=== PATIENT | male | born 1945 ===

== ENCOUNTER 2024-07-31 10:56 | Outpatient (AMB) | payer MEDICARE, SELFPAY ==
--- NOTE | 2024-07-31 10:49 | HO.SPINEOV ---
Intake Visit Reasons: LBP Intake Note: Mr. Baires is here today c/o low back pain. MRI done @ [facility] (brought disc) [employer] Required: No Assessment & Plan Assessment & Plan (1) Spondylolisthesis: Code(s): M43.10 - Spondylolisthesis, site unspecified Category: Medical Plan Dear HARRY Yee, Thank you for referring Garcia to our office today. 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 He comes in today for a 2nd opinion after be evaluated by neurosurgeon Dr. Araiza. She reportedly informed him that she would be willing to do lumbar decompression surgery but she does not feel this would address his pain. He presents today with a chief complaint of low back pain and bilateral leg pain. He states this has been ongoing for about 5 years. He does endorse some numbness and tingling in his bilateral thighs with prolonged ambulation. He denies any inciting incident for the pain. He reports that he has experienced pain from his Parkinson's diagnosis in the past, which feels different from the pain he is experiencing now. He had a difficult time describing the pain in his lower extremities, and is unable to distinguish his leg pain from low back pain, as he states it is all ?interconnected. He reports that when making positional changes such as sitting up from a lying down position, or standing from a seated position he gets severe exacerbations of his pain. He states that when he lays flat in bed on his back he experiences 0 pain. Of note, most recently he began using a cane about 3 months ago to help with ambulation, then about 1 month ago he had to start using a walker to ambulate due to the pain. He has been going to physical therapy every for the past several years, and up until a few weeks ago he was doing regular stationary bicycle exercises and walking about a mile a day. Unfortunately, he is unable to do either of these things now due to the pain. He has obtained injections before both at [facility] and [facility] pain management in the past. He reports that the 1st 2 injections he had a [facility] pain management were successful in treating the pain he describes today. PMH: Osteoporosis, Parkinson's disease, aortic valve regurgitation (bovine valve replacement 2018), Gaucher's disease, major depression, osteoarthritis, cardiomyopathy. BUN :32 on 06/05/24 but GFR >60. Social hx: Patient does not smoke, reports no substance use. Medications: Aspirin 81 mg, carbidopa, levodopa, duloxetine, gabapentin, magnesium, methylphenidate, mirtazapine, morphine 15 mg instant release, sildenafil, melatonin. Allergies: NKDA Physical exam: Garcia has about 4/5 strength of right-sided plantar flexion, and bilateral iliopsoas testing. The rest of his strength in the lower extremities is 5/5. His upper extremity strength is 4/5 diffusely. He has no significant sensational deficits to light touch on examination. His reflexes are 2+ intact. He ambulates very slowly using the available furniture in the office to support himself. He use a walker at baseline. His movements are very rigid. (-) Daniels's, (-) clonus, (-) bilateral straight leg raise. Imaging review: MRI of the lumbar spine completed at [facility] 07/24/2024 (accessible in [place], poor quality imaging) shows what appears to be severe central canal and bilateral foraminal stenosis at L2-3, L3-4. The patient has transitional anatomy, the MRI is already labeled, so for the sake of this assessment we will identify the spondylolisthesis at L4-5. There is what I would call a grade 2 spondylolisthesis at L4-5, most notable on rough localizer view image 1. This is causing severe central canal and bilateral foraminal stenosis at this level. There is significant endplate inflammation at L4-5 noted on STIR sequence. When compared to the MRI completed in 2021, it appears that both the listhesis in the central canal stenosis/bilateral foraminal stenosis are worsening. Impression: Garcia is a pleasant 78-year-old male who comes in today for a 2nd opinion after being evaluated by neurosurgeon Dr. Araiza at [facility]. He reports that he was offered lumbar decompression, but informed that it may not have any effect on his pain. It is possible that lumbar decompression could be beneficial for the patient, however I believe the listhesis at L4-5 is likely the primary pain generator, given that the patient experiences severe exacerbations of pain with positional change, and his listhesis appears worsened from his prior imaging in 2021. If this is in fact the causative agent for his low back pain and leg pain, I would expect the injections that he obtained from [facility] pain management which relieved his pain to be at this level. The treatment for this typically would be correction of the listhesis via lumbar fusion, however the patient has multiple medical comorbidities that make him a poor surgical candidate. Due to the muscular rigidity of Parkinson's, lumbar fusion can be very difficult in these patients. He also has osteoporosis diagnosed in 2017, with no recent DEXA scan. 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 He is very motivated for surgery if he could be offered a surgical solution that will help resolve some of his symptoms. For these reasons and the complexity of this case I would like the patient to follow up with the attending neurosurgeon Dr. Reilly to see if there is anything he is able to offer him. Thank you for allowing us to care for your patient. The total time spent with this visit with this patient was 65 minutes reviewing history, physical exam, MRI imaging review, and implementation of treatment plan or further diagnostic testing Magdy Reilly MD,PhD [facility] Coding Level of Care Code New Pt Level 5 (18379) Diagnoses Spondylolisthesis M43.10
--- OUTSIDE RECORDS SUMMARY | 2024-07-31 12:51 | XMS_ITS | Clinical Summary ---
Author Organization [facility] Address [facility] [place] [address] Care Team Providers Care Veterinary Assistant Name Role Phone Agnieszka Seymour MD Primary Care Provider [phone] Allergies No known active allergies Medications Medication Sig Dispensed Refills Start Date End Date Status sildenafil (REVATIO) 20 mg tablet Take 1 tablet by mouth as needed. 05/03/2013 Active melatonin 3 mg Tablet Take 2 mg by mouth nightly. 2mg at night Active mirtazapine (Remeron) 15 mg TabletIndications:P arkinson's disease Take 2 tablets by mouth nightly. 05/08/2022 Active Additional Information Patient taking differently: 15 mgOral NIGHTLY, Reported on 10/28/2023 methylphenidate (Ritalin) 20 mg tabletIndications:P arkinson's disease Take 1 tablet by mouth daily. Take one tablet in am. Pt is also taking one 10 mg tablet in pm. 30 tablet 08/11/2022 Active Additional Information Patient taking differently:20 mg Oral DAILY,Take one tablet @ 8 am & 1/2 tab 12 noon., Reported on 06/01/2023 nystatin (MYCOSTATIN) 100,000 unit/gram Powder as needed. 05/18/2023 Active senna-docusate (Pericolace) 8.6-50 mg Tablet Take 1 tablet by mouth 2 times daily. 60 tablet 11 10/28/2023 Active carbidopa-levodopa (Sinemet) 10-100 mg tabletIndications:O ther secondary parkinsonism Take 2 tablets by mouth 8 times daily. Take every two hours: 6AM, 8AM, 10AM, Noon, 2PM, 4PM, 6PM, 8PM 480 tablet 1 07/11/2024 Active carbidopa-levodopa (Sinemet CR) 50-200 mg ER tabletIndications:O ther secondary parkinsonism Take 1.5 tablets by mouth nightly. 45 tablet 1 07/11/[address] (Cymbalta) [address] capsule Take 1 capsule by mouth daily for 90 days. 90 tablet 3 07/25/2024 10/23/2024 Active Carbidopa-Levodopa- Entacapone (Stalevo 200) 50-200-200 mg tabletIndications:P arkinson's disease,Idiopathic Parkinson's disease Take 1 tablet by mouth 5 times daily. 450 tablet 3 07/27/2024 Active Active Problems Problem Noted Date Diagnosed Date Lumbar spinal stenosis 06/02/2024 Assessment & Plan (06/02/2024 7:15 PM EST): The problem with Manishas gait appears to be multifactorial: Overall there seems to be an asymmetry to the examination showing some decreased reflexes, increased muscle atrophy, and decreased muscle strength in the right lower extremity, they could be all related to his severe spinal stenosis. I do not have any spinal imaging, but I would like to start with that, and I would like to consider whether referral to a spinal neurosurgeon would be of any use, and to consider any range of invasive to minimally invasive surgeries. Obviously he is not a candidate for invasive surgery, but if there is a minimal procedure that can be done in the right appropriate setting, we should consider that. Sacroiliac joint dysfunction of both sides 06/02 Gait difficulty- multifactorial 06/02/2024 Assessment & Plan (06/02/2024 7:19 PM EST): Parkinson's with axial features Right lumbosacral stenosis Peripheral neuropathy Idiopathic peripheral neuropathy 06/02/2024 Assessment & Plan (06/02/2024 7:18 PM EST): He does have a distal peripheral neuropathy to vibratory sensation suggesting a large fiber neuropathy that is length-dependent, and of those possibilities, B12 deficiency is the most concerning, but there may be others such as aminoglycoside autoantibodies as well as toxins such as heavy metals which we can reevaluate. To further get an understanding of this, I believe a nerve conduction test would be helpful so I will order that. End of battery life of deep brain stimulator S/P deep brain stimulator pl acement - bilateral GPi - Medtronic Percept 08/16/2020 Assessment & Plan (06/02/2024 7:19 PM EST): I made changes to group a and group B in the deep brain stimulator to the recommended settings according to the [employer] sales service representative. We we will allow him to make some changes to the stimulator settings we will start with group A, so that he will have some information when he sees the deep brain stimulator neurologist in [place] in 10 days. GBA associated Parkinson's disease 06/11/2020 Overview (08/31/2023): Symptoms RUE rest tremor Decreased armswing on R when swimming Slower race time scores Data and imaging Samantha: MRI: CT: PET: Gaucher Disease status: Medications current Levodopa Bilateral GPi DBS 2020 Tried leads 0 and 1 on the left which affected speech and a sense of dizziness Brainsense survey detect peak at leads 0-1 and 1-2 Leaving it with bipolar or monopolar. Assessment & Plan (06/02/2024 7:13 PM EST): Continue levodopa DBS changes were made. Groups A and B allow monopolar stimulation or dual monopolar stimulation respectively Assessment & Plan (03/14/2024 7:12 AM EST): Garcia Baires is a 78-year-old with GBA homozygous and Parkinson's disease. He is status post GPI DBS and has not had a full programming session, I believe he was started on the default settings which seem to be working. We have not explored all of the potential developmental options. For that reason, I recommended that he undergo a full programming session. He would like 1 closer to home and I we will make a referral to Dr. Danielle Richard. Assessment & Plan (08/31/2023 10:08 AM EDT): We revised group C with a higher freqeuncy Group A is what you came in with Group B is monopolar also with higher freqeuncy 180 Hz) Feel free to experiment with Group B or D (monopolar) and if need to fall back to Group A, the bipolar setting that seems to work the best. We repeated the brainsense survey and it seems that the middle two peaks last picker the most signal. Assessment & Plan (11/27/2022 8:18 AM EDT): The patient complains about a gradual decline which is likely multifactorial. I encouraged him to discuss with Dr. Domínguez any clinical trial that might be designed to look at drugs that may be helpful for the GBA gene mutations and she may be intimately knowledgeable of the clinical trials that are involving this population of parkinsonian patients. He was encouraged to continue exercise, and we discussed caregiver health, and I think that it is important for giving some space for Anupama to take care of herself. We have this discussion with stem cells. Assessment & Plan (05/08/2022 6:07 PM EST): We talked about the clinical trial for the GBA medication that might be applicable especially for your situation. I will provide him with more information once that is available. Adjusting the deep brain stimulator on the left GPI resulted in improved rigidity on the right, and I left that at 4.0. He had the ability to make any further adjustments if he finds that this adjustment caused any side effects later on today. I agree with increase of dosing of the Stalevo which is the carbidopa levodopa entacapone, up to 4 times daily. I have made that change in the record. I will make a referral to Dr. Benedict Rosado to address the symptoms of apathy and anhedonia. Advise that he consider physical therapy, consider natasha chi for better balance. Assessment & Plan (10/21/2021 7:03 AM EDT): Garcia continues to have suffered from slow declines and performance and physical activity. Fatigue is a major issue. Unfortunately, I am not sure this represents a solution pharmacologically. From a motor standpoint, his symptoms are fairly well controlled in terms of bradykinesia and rigidity as well as his gait and balance. He does have some mild hip weakness on gait examination, but otherwise, I am afraid that he is optimized in terms of medications. Deep brain stimulation as well. Continue to encourage him to exercise, and to maintain physical activity and to avoid deconditioning. Assessment & Plan (04/29/2021 6:02 AM EST): Garcia Tai is a 75-year-old highly active male with GBA mutation related Parkinson's. He is status post DBS, but now with complaints that are suggestive of polymyalgia rheumatica. Would like to check a sed rate and evaluate for any causes of myalgias. 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 10/21/2010 10/21/2010 Heart block AV first degree 10/07/2010 Overview (01/17/2012): At least since 1985 with no issues Anemia 10/07/2010 Overview (10/07/2010): Mild chronic anemia since his teens, worked up but no cause found Resolved Problems Problem Noted Date Diagnosed Date Resolved Date Idiopathic Parkinson's disease 06/04/2015 04/29/2021 Assessment & Plan (09/06/2020 7:08 PM EDT): At this point, it appears that the bipolar lead settings were optimal in reducing some of the side effects, and that leads slightly more dorsal appear to be better, at reducing the side effects of mood alteration. At this point, I would not make any changes to the deep brain stimulator at this time. However, I note that he is now age 75 and is still on a fairly strong dose of ropinirole. I wonder whether this is contributing to his alteration in I would like to taper him off of the ropinirole switching to immediate release ropinirole at 2 mg strength 4 times a day, reducing to 3 times a day, then twice a day and then off once a day. He knows to adjust the deep brain stimulator settings as needed according to the development of any slowing down. I will see him in follow-up or sooner if the need arises. This was a 40-minute visit, during which greater than 25minutes were spent in counseling discussion regarding the above assessment and plan. Assessment & Plan (02/29/2020 12:55 PM EST): You were seen for OFF-ON testing and your UPDRS Motor score went down from 30 to 18. We'll discuss your case with the DBS discussion board. 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 He has progressed and much of our discussion centered on timing of DBS. Now is the right time to do so. One thing we did not discuss is the report that DBS can affect the ability to swim. I'll be sure to send him the article. Assessment & Plan (07/03/2019 11:16 PM EDT): Garcia Baires is doing well on current medications. At this point, I am reluctant to increase the medications Assessment & Plan (02/20/2019 5:19 PM EST): The patient is a 73-year-old male with a history of tremor and rigidity on the left more than the right. Examination reveals very mild parkinsonian signs. Recommend that we decrease his rasagiline. I have changed his carbidopa levodopa. We discussed manifestations of depression including irritability, short temperedness, anger, especially when he continues to expression of depression in time, he is not interested in starting an antidepressant. I suggested starting him on sertraline. Other possibilities include nortriptyline. This has a faster action of onset, fewer side effects. He will follow-up with us on an annual basis, alternating between us and the [facility] (Dr. Domínguez) Assessment & Plan (05/23/2017 5:46 PM EST): Parkinson's disease associated with Gaucher's disease. There has been some slight progression of motor symptoms. I recommend that we do a slight dose increase of the Requip XL. Advancing from 16 mg to 20 mg per day. Advised that he continue follow-up with Dr. Arnold and Dr. Domínguez. Assessment & Plan (12/02/2015 12:58 PM EDT): Doing well on current dopaminergic and MAO-B inhibitor. Will continue to encourage exercise, range of motion, and regular fitness training. Unfortunately, medication directed against Gaucher disease are not able to address the underlying pathophysiology (presumed). We reviewed current understanding of lysosomal storage and its role in alpha synuclein degradation. Nolitinib may be a promising agent that enhances activity. Additional questions were answered. 25 min visit with > 15 min in discussion and therapeutic counseling. Assessment & Plan (06/04/2015 3:09 PM EST): Mr. Baires has a very interesting family history, one in which Alyssa Arnold has described as having a role in Parkinson's disease given the association in families with GBA 1 mutations. I provided a review by Dr. Arnold. I told him that I will contact her and will send him information as it becomes available. I am not sure whether the genetic status qualifies him for idiopathic Parkinson's disease or not, which will impact on his ability to participate in clinical trials. I described the fact that new patients who are newly diagnosed without being on medications are extremely difficult to recruit for clinical trials, are essential in our studies of disease modifying agents. With that in mind, the following plan was formulated: 1. Research GBA1 and link to PD. 2. Ok to start rasgaline 0.5 mg daily, and f/u with to decide if 1 mg is needed. 3. I will contact [employer] PD3 investigators. 4. You will get a Smell Identification test in the mail which he will send back to us. 5. Continue exercise as he is doing. Knee pain 09/26/2010 11/13/2010 Encounters Date Type Department Care Team Description 07/27/2024 Orders Only Neurology at [address] [phone] Fernando Blancas MD Parkinson's disease; Idiopathic Parkinson's disease 07/25/2024 Refill [facility]iatry [place] [address] Benedict Rosado MD 07/21/2024 Telephone Psychiatry [place] [address] Lelia Sosa 07/21/2024 Notes Only Psychiatry [place] [address] Benedict Rosado MD 07/11/2024 Telephone Neurology at [address] [address] Fernando Blancas MD 07/08/2024 Travel 07/03/2024 Telephone Neurology at [address] [address] Fernando Blancas MD Other (Symptom: freezing a lot, weakness, balance issues, falls /) 06/27/2024 Orders Only Neurology at [address] [address] Fernando Blancas MD Other secondary parkinsonism 06/21/2024 Telephone Neurology at [address] [address] Fernando Blancas MD Other 06/02/2024 8:30 AM EST Office Visit Neurology at [address] [address] Fernando Blancas MD GBA associated Parkinson's disease; Spinal stenosis of lumbar region without neurogenic claudication; Gait difficulty- multifactorial; Idiopathic peripheral neuropathy; S/P deep brain stimulator placement - bilateral GPi - [employer]tronic Percept 06/02/2024 Travel 05/12/2024 10:00 AM EST TH Visit (TeleHealth) Psychiatry [place] [address] Benedict Rosado MD Parkinson's disease, unspecified whether dyskinesia present, unspecified whether manifestations fluctuate; Anxiety; Apathy from Last 3 Months Family History Relation Status Comments Brother Gaucher disease Mother Parkinson's at a ge 65, stroke at age 81 Social History Tobacco Use Types Packs/Day Years Used Date Smoking Tobacco: Former Cigarettes Q uit: 1969 Smokeless Tobacco: Never Tobacco Cessation:Counseling Given: Not Answered Alcohol Use Standard Drinks/Week Comments Not Currently 1 (1 standard drink = 0.6 oz pur e alcohol) 1/ week Overall Financial Resource Strain (CARDIA) Answe r Date Recorded How hard is it for you to pa y for the very basics like food, housing, medical care, and heating? Not hard at all 08/03/2022 Exercise Vital Sign Answer Date Recorde d On average, how many days pe r week do you engage in moderate to strenuous exercise (like a brisk walk)? 7 days Minutes of Exercise per Session Not on file 08/03/2022 Hunger Vital Sign Answer Date Recorded Within the past 12 months, y ou worried that your food would run out before you got the money to buy more. Never true 08/04/19 23 Within the past 12 months, t he food you bought just didn't last and you didn't have money to get more. Never true 08/03/2022 PRAPARE - Transportation Answer Date Re corded In the past 12 months, has l ack of transportation kept you from medical appointments or from getting medications? No 07/18 In the past 12 months, has l ack of transportation kept you from meetings, work, or from getting things needed for daily living? No 08/03/2022 Housing Stability Vital Sign Answer Samantha e Recorded In the last 12 months, was t here a time when you were not able to pay the mortgage or rent on time? No 08/03/2022 In the last 12 months, how many places have you lived? 1 08/03/2022 In the last 12 months, was t here a time when you did not have a steady place to sleep or slept in a custodial (including now)? No 08/03/2022 DH IPV Inpatient Questions Answer Date Recorded Prevent Contact with Others Not on file 03/19 Feels Threatened by Someone Not on file 03/19 Feels Unsafe at Home Not on file 03/29/2024 Physical Signs of Abuse Present no 03/29/2024 Sex and Gender Information Value Date Recorded Sex Assigned at Not on file Gender Identity Not on file Sexual Orientation Not on file Last Filed Vital Signs Vital Sign Reading Time Taken Comments Blood Pressure 118/67 06/02/2024 8:21 AM EST Pulse 55 06/02/2024 8:21 AM EST Temperature 36.1 ??C (97 ??F) 03/29/2024 8:38 AM EST Respiratory Rate 16 03/29/2024 9:00 AM EST Oxygen Saturation 97% 03/29/2024 9:00 AM EST Inhaled Oxygen Concentration - - Weight 65.8 kg (145 lb) 03/29/2024 6:43 AM EST Height 175.3 cm (5' 9 ) 03/29/2024 6:43 AM EST Body Mass Index 21.41 03/29/2024 6:43 AM EST Plan of Treatment Upcoming Encounters Date Type Department Care Team (Late st Contact Info) Description 09/08/2024 3:00 PM EDT Office Visit Neurology at [address] [address] Fernando Blancas MD [facility] [place] [address] 09/22/2024 10:30 AM EDT TH Visit (TeleHealth) Psychiatry [place] [address] Benedict Rosado MD [facility] [place] [address] Health Maintenance Due Date Last Done Comments Hepatitis C Screening 08/23/1963 Pneumoccocal Vaccine: 50+ (1 of 2 - PCV) 1964 Tetanus/Diphtheria/Pertussis Vaccines (1 - Tdap) 08/22 Zoster vaccine (1 of 2) 08/23/1995 RSV Vaccine (1 - 1-dose 75+ series) 2020 Covid-19 Vaccine (1 - season) 2023 Influenza (Flu) vaccine (1 o f 1 - Influenza standard series) 12/19/2023 Medical Devices Implanted Type Area Manager Channel Device Identifier Shelf Expiration Date Model / Serial / Lot Cement,Bne,Cmw 2,Hlf Dose,20gm ([id number]) - [id number] Implanted:Qty: 1 on 10/21/2010 at [facility] IMPLANTS DO NOT USE Depuy Metal Fabricating Inspector - 3527 [id number] / / [id number] Component,Patlr,O vl Std,38mm ([id number]) (Autoreq) - [id number] Implanted:Qty: 1 on 10/21/2010 at [facility] IMPLANTS DO NOT USE [employer] Fabricating Inspector - 3527 07/23/2015 [id number] / / [id number] Component,Tibl,Pc ot,Keeled,5 ([id number]) (Autoreq) - [id number] Implanted:Qty: 1 on 10/21/2010 at [facility] IMPLANTS DO NOT USE [employer] Fabricating Inspector - 3527 06/22/2015 [id number] 150 / / [id number] Insert,Tibl,Rp,Cr vd,5,10mm (7093054) (Autoreq) - [id number] Implanted:Qty: 1 on 10/21/2010 at [facility] IMPLANTS DO NOT USE Dep[employer] Metal Fabricating Inspector - 3527 05/24/2015 96-2051 / / [id number] Component,Fmrl,Rt ,Cr,5,12k59oz ([id number]) (Autoreq) - [id number] Implanted:Qty: 1 on 10/21/2010 at [facility] IMPLANTS DO NOT USE [employer] Fabricating Inspector - 3527 08/21/2020 [id number] / / [id number] Cover Tatiana Hole Cranial Low Profile Contoured With Tab ([id number]) - [id number] Implanted:Qty: 2 on 07/08/2020 by Kt Matthews MD at [facility] IMPLANTS Cranial [employer] [id number] / / [id number] A Kit Lead Neurostimulator 0.3ynm57cd Quadripolar Activa Dbs ([id number]) - [id number] Implanted:Qty: 2 on 07/08/2020 by Kt Matthews MD at [facility] IMPLANTS Cranial [employer] - [employer] 05/18/2024 [id number] / / [id number] Battery Generator Neurostimulator Percept Pc ([id number]) ([employer]oreq) - [id number] Implanted:Qty: 1 on 07/08/2020 by Kt Matthews MD at [facility] IMPLANTS Right: Chest [employer] 05/16/2022 [id number] / / [id number] H Kit Extension Neurostimulator 60cm Brain Mri Quadrapolar ([id number]) - [id number] Implanted:Qty: 1 on 07/08/2020 by Kt Matthews MD at [facility] IMPLANTS Left: Cranial [employer] 06/12/2023 [id number] / [id number] / Kit Extension Neurostimulator 60cm Brain Mri Quadrapolar ([id number]) - [id number] Implanted:Qty: 1 on 07/08/2020 by Kt Matthews MD at [facility] IMPLANTS Right: Cranial [employer] 05/29/2023 [id number] / [id number] / Battery Generator Neurostimulator Percept Pc Brainsense ([id number]) (Autoreq) - [id number] Implanted:Qty: 1 on 08/26/2022 by Nette Ramirez MD at [facility] IMPLANTS Chest Wall [employer] - [employer] 01/15/2024 [id number] / [id number] / Percept Rc Implanted:Qty: 1 on 03/29/2024 by Nette Ramirez MD at [facility] Right: Chest [id number] 01/30/2026 [id number] / [id number] / Advance Directives Documents on File Type Date Recorded 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 Yes, Order is based on Patients wishes. Care Teams Veterinary Assistant Relationship Specialty Start Date End Date Agnieszka Seymour MD [address] [address] PCP - General Family Medicine 07/01/20
--- OUTSIDE RECORDS SUMMARY | 2024-07-31 12:51 | XMS_ITS | Clinical Summary ---
Author Organization [facility] Address [address] [place] [address] Care Team Providers Care Painting Technician Name Role Phone Agnieszka Seymour Mt Primary Care Provider [phone] Allergies No known active allergies Medications aspirin (ASPIR-81 ORAL) 06/05/2020 Act jordon carbidopa-levodo pa-entacapone (STALEVO) 50-200-200 mg per tablet TAKE 1 TABLET 5 TIMES DAILY 03/23/2024 Active carbidopa-levodo pa ER/CR (SINEMET ER/CR) 25-100 mg tablet Take 1 tablet by mouth 2 times a day. As needed Active DULoxetine DR (CYMBALTA) 30 mg capsule Take 30 mg by mouth once a day. Active melatonin 3 mg tablet Take 2 mg by mouth daily. Active Ritalin 20 mg tablet 06/05/2022 Active mirtazapine (REMERON) 15 mg tablet Take 15 mg by mouth at bed time. 04/21/2024 Active Active Problems Problem Noted Date Diagnosed Date Parkinson's disease with fluctuating manifestati ons 06/14/2024 S/P deep brain stimulator placement 06/14/2024 Encounters Date Type Department Care Team Description 07/06/2024 Telephone [facility] [address] [place] [address] Telephone Intake, Staff PAC Tatyana Zimmerman Appmaru Request - Established 06/12/2024 9:00 AM EST Office Visit [facility] [address] [place] [address] [phone] Erasmo, Tatyana M., REPAIRER SHOE STICKS Parkinson's disease with fluctuating manifestations, unspecified whether dyskinesia present (Primary Dx); S/P deep brain stimulator placement from Last 3 Months Social History Tobacco Use Types Packs/Day Years Used Date Smoking Tobacco: Never Smokeless Tobacco: Never Tobacco Cessation:Counseling Given: Not Answered Alcohol Use Standard Drinks/Week Comments Never 0 (1 standard drink = 0.6 oz pur e alcohol) Sex and Gender Information Value Date Recorded Sex Assigned at Male 06/05/2024 1:03 PM EST Legal Sex Male 12:53 PM EST Gender Identity Male 06/05/2024 1:03 PM EST Sexual Orientation Choose not to disclose 2024 1:03 PM EST Last Filed Vital Signs Vital Sign Reading Time Taken Comments Blood Pressure 92/55 06/12/2024 9:11 AM EST Pulse 68 06/12/2024 9:11 AM EST Temperature 36.5 ??C (97.7 ??F) 06/12/2024 9:02 AM ES T Respiratory Rate 16 06/12/2024 9:02 AM EST Oxygen Saturation 95% 06/12/2024 9:02 AM EST Inhaled Oxygen Concentration - - Weight 63.5 kg (140 lb) 06/12/2024 9:02 AM EST Height 175.3 cm (5' 9 ) 06/12/2024 9:02 AM EST Body Mass Index 20.67 06/12/2024 9:02 AM EST Plan of Treatment Upcoming Encounters Date Type Department Care Team (Late st Contact Info) Description 10/13/2024 9:00 AM EDT Office Visit [facility] [address] [place] [address] Tatyana Zimmerman NP [address] [place] [address] Health Maintenance Due Date Last Done Comments Hepatitis C Screening 1945 Zoster Vaccines (3 of 3) 06/16/2019 04/21/2019, 04/19 RSV Vaccine (60+ years old and patients) (1 - 1-dose 75+ series) 2020 Alcohol/Substance Use Screening 04/19/2024 Depression Screening and Follow-Up 04/19/2024 Health Care Proxy Review 04/19/2024 Social Drivers of Health Annual Screening 04/19/2024 COVID-19 Vaccine ( season) 2024 12/30/2023, 01/09/2023, 08/15/2022, Additional history exists DTaP,Tdap,and Td Vaccines (3 - Td or Tdap) 02/21/2032 02/20/2022, 07/15/2011, 06/06/2001 Pneumococcal Vaccine: 50+ Years Completed 01/30/2019, 12/29/2012 Influenza Vaccine Completed 02/04/2024, , 01/09/2023, Additional history exists Hepatitis B Vaccines Aged Out No long er eligible based on patient's age to complete [place] [id number] BCBS MCR REPLACE PPO Care Teams Painting Technician Relationship Specialty Start Date End Date Agnieszka Seymour [address] [place] [phone] PCP - General Family Medicine 03/06/24
--- OUTSIDE RECORDS SUMMARY | 2024-07-31 12:51 | XMS_ITS | Encounter Summary ---
Author Organization [facility] [place] [address] Care Team Providers Care Doughnut Maker Name Role Phone Agnieszka Seymour MD Primary Care Provider [phone] Encounter Details Date Type Department Care Team (Late st Contact Info) Description 07/27/2024 Orders Only Neurology at [facility] [address] [place] [address] Fernando Blancas MD [facility] [place] [address] Parkinson's disease; Idiopathic Parkinson's disease Social History Tobacco Use Types Packs/Day Years Used Date Smoking Tobacco: Former Cigarettes Q uit: 1969 Smokeless Tobacco: Never Alcohol Use Standard Drinks/Week Comments Not Currently [...] No 08/03/2022 Housing Stability Vital Sign Answer Zach e Recorded In the last 12 months, [...] place to sleep or slept in a snf (including now)? No 08/03/2022 IPV Inpatient Questions Answer Date Recorded Prevent Contact with Others Not on file 03/19 Feels Threatened by Someone Not on file 03/19 Feels Unsafe at Home Not on file 03/29/2024 Physical Signs of Abuse Present no 03/29/2024 Sex and Gender Information Value Date Recorded Sex Assigned at Not on file Gender Identity Not on file Sexual Orientation Not on file documented as of this encounter Plan of Treatment Upcoming Encounters Date Type Department Care Team (Late st Contact Info) Description 09/08/2024 3:00 PM EDT Office Visit Neurology at [address] [phone] Fernando Blancas MD [facility] [place] [address] 09/22/2024 10:30 AM EDT TH Visit (TeleHealth) Psychiatry [place] [address] Benedict Rosado MD [facility] [place] [address] documented as of this encounter Visit Diagnoses Diagnosis Idiopathic Parkinson's disease Paralysis agitans documented in this encounter Care Teams Doughnut Maker Relationship Specialty Start Date End [place] [address] PCP - General Family Medicine 07/01/20 documented as of this encounter
--- OUTSIDE RECORDS SUMMARY | 2024-07-31 12:51 | XMS_ITS | Encounter Summary ---
Author Organization [facility] [place] [address] Care Team Providers Care Manager Target Name Role Phone Agnieszka Seymour MD Primary Care Provider [phone] Encounter Details Date Type Department Care Team (Late st Contact Info) Description 06/27/2024 Orders Only Neurology at [facility] [address] [place] [phone] Fernando Blancas MD [facility] [place] [address] Other secondary parkinsonism Social History Tobacco Use Types Packs/Day Years [...] place to sleep or slept in a mcfp (including now)? No 08/03/2022 IPV Inpatient Questions [...] 3:00 PM EDT Office Visit Neurology at [address] [phone] Fernando Blancas MD [facility] [place] [address] 09/22/2024 10:30 AM EDT TH Visit (TeleHealth) Psychiatry [place] [address] Benedict Rosado MD [facility] [place] [address] documented as of this encounter Visit Diagnoses Diagnosis Other secondary parkinsonism documented in this encounter Care Teams Manager Target Relationship Specialty Start Date End Date Agnieszka Seymour MD [address] [address] PCP - General Family Medicine 07/01/20 documented as of this encounter
--- OUTSIDE RECORDS SUMMARY | 2024-07-31 12:51 | XMS_ITS | Encounter Summary ---
Author Organization [facility] [place] [address] Care Team Providers Care Gear Generator Set Up Operator Name Role Phone Agnieszka Seymour MD Primary Care Provider [phone] Reason for Visit * Reason Onset Date Comments Other 07/03/2024 Symptom: freezin g a lot, weakness, balance issues, falls Encounter Details Date Type Department Care Team ([facility] st Contact Info) Description 07/03/2024 Telephone Neurology at [address] [phone] Fernando Blancas MD [facility] [place] [address] Other (Symptom: freezing a lot, weakness, balance issues, falls /) Social History Tobacco Use Types Packs/Day Years [...] place to sleep or slept in a jail (including now)? No 08/03/2022 IPV Inpatient Questions [...] on file documented as of this encounter Miscellaneous Notes * Telephone Encounter - Chica Allison RN - 07/07/2024 9:50 AM EDTSummary: Significant increase in symptom intensity On request of the administrative youth support worker, I was asked to come speak to the patient who was sitting in front of the exit confidential secretary's desk. Patient was brought into Room 5, so that I could speak with him in private. Patient stated that when they spoke to a planner/scheduler yesterday they were told that they could be seen at 9:30AM. However, on review of the patient's EMR, patient is schedule to see Dr. Blancas on September 01, 2024. Patient states that he cannot wait until August [address] Blancas or any Neurology provider because his condition has declined dramatically since being seen in clinic on June 02, 2024. Patient reports most of the symptoms that have decline are mostly physical and has to do with his mobility: Unable get out of bed independently due to severe freezing and pain from spinal stenosis rated a 9/10. If he can get to a standing position then the pain decreases to a 4/10 Once in the bed for the night he cannot rollover in bed. Patient has had to alter his process on how he gets up in the morning to take his pills Probable injury to left bicep tendon/muscle due to recent falls and the amount of assistance needed to get patient sitting on the side of the bed in the morning. has to pull patient's left arm to get patient to sitting position 8-10 falls since last office visit causing a great deal of bruising and 2 broken knuckles of the Right hand. Patient is so concerned about how much he is relying on his for mobility and he is concerned about her physical health. Patient will try crushing his first dose of Carbidopa/Levodopa 25/100mg with applesauce while lyingin bed in an attempt to alleviate some of the freezing and hopefully this will help patient to get from a lying to sitting position in bed in the AM. Patient has scheduled a TeleHealth appointment with Dr. Blancas @ 4:30pm as it is too far to drive to [facility]. Patient and his will be in [place] for the TeleHealth. Store Group Manager to route note to provider for review prior to appointment on 07/11/24 Chica MORALES * Telephone Encounter - Jaime Vega - 07/07/2024 9:24 AM EDT Patient came in today thinking he had an appointment today. He stated I told him there were severalappointments today and I called him yesterday. He said he needed to see someone arlene as he is declining. I recommended the ed then went and got a nurse to speak with him. * Telephone Encounter - Queen Noe Taveras RN - 07/06/2024 8:34 AM EDT Returned call to patient and spoke with patient and patient's /DPR Anupama who states the patient has been experiencing an increase in symptoms such as freezing, weakness, balance issues, falls and pain. States she thinks patient needs a sooner appt and all medications need to be evaluated. Patient and spouse explain that the freezing became more obvious after last visit with Dr. Blancas. States the freezing occurs many times during the day and it seems most likely to occur when a dose of medication is coming due, however it's really hard to say . Patient also explains that his ongoing pain and balance issues seem to be his most immediate challenges. States he has spinal stenosis and takes gabapentin for pain which his PCP manages. Advised to contact PCP to inform that pain is not under control. Patient stated he would reach out to PCP. Patient also sates due to weakness in his legs and balance issues, he has occasional falls. Patientuses a walker and stair lift. Patient states he tries to get out and walk everyday, however the walks are very short. He has had to stop going for peddling for PD and his exercise class at the due to the weakness. Patient also states he goes to PT 1x a week. Patient states some days are better, for instance yesterday was a good day but states today is a lousy day and he can barely move. States it takes him 30-45 minutes to get up from bed and make his way downstairs with the stair lift. Patient states this morning he has already taken Stalevo and C/LIR and still can barely move. Patient states he takes Stalevo when he gets up in the morning, then at 9AM, 1PM, 4PM and 9PM. Patient also states he take C/L 25-100, usually 1 tab if he's between doses and wants to do something like go for a walk. States on a typical day he takes 2 tabs of C/L 25-100 at intervals that seem appropriate for that day. Patient states he also takes C/L CR 50-200 mg when he goes to bed around 9:30 PM or 10PM. Advised patient to call PCP regarding pain and to use walker at all times to prevent a fall. Informed that I would forward message to Dr. Blancas for his review and recommendations. Patient and spouse verbalized understanding. * Telephone Encounter - Nestor Bob - 07/06/2024 8:16 AM EDT Anupama Baires, patient's /DPR, stated she is very concerned not to have heard back from a nurse as the patient's symptoms are increasing and acute and he is desperate for relief. Anupama stated she believes he may need a new medication regiment and can be reached at [phone] to discuss. * Telephone Encounter - Marlin Valencia RN - 07/03/2024 2:05 PM EDT Copied from [facility] #[id number]. Topic: Specialty Dept CRMs - Triage >> Jul 03, 2024 1:28 PM Nestor Randhawa wrote: Triage Message Specialist: Fernando Blancas MD Relationship (if other than patient-full name): Anupama Baires, patient's /DPR Symptom: freezing a lot, weakness, balance issues, falls Has patient experienced symptom before yes If patient has experienced symptom before, when was the last time this occurred ongoing Is patient currently having symptom yes When did symptom begin ongoing Additional Comments: Anupama stated the patient has been experiencing an increase in symptoms, he isfreezing a lot, weakness, balance issues, falls and pain. Anupama stated she does not believe the carbidopa-levodopa is not working and she feels the patient needs to be seen before August. documented in this encounter Plan of Treatment Upcoming Encounters Date Type Department Care Team (Late st Contact Info) Description 09/08/2024 3:00 PM EDT Office Visit Neurology at [address] [phone] Fernando Blancas MD [facility] [place] [address] 09/22/2024 10:30 AM EDT TH Visit (TeleHealth) Psychiatry [place] [address] Benedict Rosado MD [facility] DR PSYCHI[place] [address] documented as of this encounter Visit Diagnoses Not on filedocumented in this encounter Care Teams Gear Generator Set Up Operator Relationship Specialty Start Date End Date Agnieszka Seymour MD [address] [address] PCP - General Family Medicine 07/01/20 documented as of this encounter
--- OUTSIDE RECORDS SUMMARY | 2024-07-31 12:51 | XMS_ITS | Encounter Summary ---
Author Organization [facility] Address [address] [place] [address] Care Team Providers Care Gate Agent Name Role Phone Agnieszka Seymour Mt Primary Care Provider [phone] Reason for Visit * Reason Onset Date Comments PAC Tatyana Zimmerman Appt Request - Established 2024 Encounter Details Date Type Department Care Team (Late st Contact Info) Description 07/06/2024 Telephone [facility] [address] [place] [address] Telephone Intake, Staff PAC Tatyana Zimmerman Appt Request - Established Social History Tobacco Use Types Packs/Day Years Used Date Smoking Tobacco: Never Smokeless Tobacco: Never Alcohol Use Standard Drinks/Week Comments Never 0 (1 standard drink = 0.6 oz pur e alcohol) Sex and Gender Information Value Date Recorded Sex Assigned at Male 06/05/2024 1:03 PM EST Legal Sex Male 12:53 PM EST Gender Identity Male 06/05/2024 1:03 PM EST Sexual Orientation Choose not to disclose 2024 1:03 PM EST documented as of this encounter Miscellaneous Notes * Telephone Encounter - RUFUS Bailey - 07/07/2024 9:31 AM EDT PAC working bump list Pt need to r/s DBS procedure appt Please advise * Telephone Encounter - Polina Cartwright - 07/06/2024 3:11 PM EDT Pt is calling to resched his appt with Tatyana Zimmerman for DBS that was in September. The DT would not allow me to resched. Please reach out resched. documented in this encounter Plan of Treatment Upcoming Encounters Date Type Department Care Team (Late st Contact Info) Description 10/13/2024 9:00 AM EDT Office Visit [facility] [address] [place], [place] [phone] Tatyana Zimmerman, WELDING MACHINE ASSEMBLER [address] [place] [address] documented as of this encounter Visit Diagnoses Not on filedocumented in this encounter Care Teams Gate Agent Relationship Specialty Start Date End Date Agnieszka Seymour [address] [place] [phone] PCP - General Family Medicine 03/06/24 documented as of this encounter
--- OUTSIDE RECORDS SUMMARY | 2024-07-31 12:51 | XMS_ITS ---
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
--- OUTSIDE RECORDS SUMMARY | 2024-07-31 12:51 | XMS_ITS | Referral Summary ---
Author Organization [facility] Address [address] [place] [address] Care Team Providers Care Dining Server Name Role Phone Dawn Agnieszka Amor Primary Care Provider [phone] Encounters Date Type Department Care Team Description 07/06/2024 Telephone [facility] [address] [place] [address] Telephone Intake, Staff PAC Tatyana Zimmerman Appt Request - Established 06/12/2024 9:00 AM EST Office Visit [facility] [address] [place] [address] Tatyana Zimmerman NP Parkinson's disease with fluctuating manifestations, unspecified whether dyskinesia present (Primary Dx); S/P deep brain stimulator placement from Last 3 Months Allergies No known active allergies Medications aspirin [...] 06/14/2024 S/P deep brain stimulator placement 06/14/2024 Social History Tobacco Use Types Packs/Day Years [...] Description 10/13/2024 9:00 AM EDT Office Visit [facility] [address] [place] [address] Tatyana Zimmerman NP [address] [place] [address] Insurance BCBS MCR REPLACE PPO Care Teams Dining Server Relationship Specialty Start Date End Date Agnieszka Seymour [address] [place] [phone] PCP - General Family Medicine 03/06/24
== END 2024-07-31 11:43 | disposition home or self-care (01) ==
LOC: HO.HNS 10:56
PROVIDERS: PCP Family Medicine; Referring Provider Nurse Practitioner Adult Health; Visit Provider Physician Assistant
DX: M43.10 Spondylolisthesis, site unspecified (principal)
CPT/HCPCS: 99205

== ENCOUNTER → 2024-07-31 10:56 | Outpatient (BNVA) | payer MEDICARE, SELFPAY | PROVIDERS: PCP Family Medicine; Referring Provider Nurse Practitioner Adult Health; Visit Provider Physician Assistant | DX: M43.10 Spondylolisthesis, site unspecified (principal) | CPT/HCPCS: 99202 ==

== ENCOUNTER 2024-08-04 10:18 | Outpatient (AMB) | payer MEDICARE, SELFPAY ==
--- NOTE | 2024-08-04 10:22 | A.SPINEOV_ITS ---
Intake Visit Reasons: Follow up from 07/31/24 Intake Note: Mr. Baires is here today to F/u and meet Dr. Reilly. Associate Business Analyst Required: No Allergies No Known Allergies Allergy (Verified 08/04/24 10:23) Assessment & Plan Assessment & Plan (1) Spondylolisthesis: Code(s): M43.10 - Spondylolisthesis, site unspecified Category: Medical Qualifiers: Spinal region: lumbosacral Qualified Code(s): M43.17 - S pondylolisthesis, lumbosacral region Plan: Dear colleague, On 08/04/2024 I saw for follow-up Garcia Baires. He is a 78-year-old male who suffering from back pain and bilateral leg pain with walking and standing. Changing positions produces back pain. He was diagnosed with a grade 2 lumbar spondylolisthesis and associated severe central stenosis and bilateral L4 foraminal stenosis. His medical history is positive for Parkinson's disease and osteoporosis for which she takes vitamin-D and calcium. He was seen by my PA who referred him to me for further evaluation and to discuss possible surgical options. I reviewed the MRI of the lumbar spine in detail with the patient in his that shows a grade 2 spondylolisthesis and severe degenerative disc disease and associated spinal stenosis. A standing lumbar x-ray with flexion-extension obtained today shows a lumbar degenerative scoliosis L2-3 L3-4 in addition to the grade 2 L4-5 spondylolisthesis. A simple decompression is not a good surgical option in his patient due to the grade 2 spondylolisthesis. Normally, correction of the spondylolisthesis with a lumbar fusion would be the treatment of choice. His case is more complicated due to Parkinson's and osteoporosis. The best option would be to have some form of anterior approach that will allow the largest footprint of cage and lessen the risk of subside is an hardware failure. I can not perform an oblique lumbar interbody fusion due to the vasculature but an anterior lumbar interbody fusion maybe possible but I have to discuss his case with my approach surgeon. In the meantime, I would like to obtain a CT of the lumbar spine to get a good feeling about his bone quality and also to see if there is any auto fusion going on at the L4-5 level or at the scoliotic levels. The patient will return to my clinic to review the CT scan and to make a decision about surgery and a surgical approach. I spent 40 minutes in his consult to review imaging and discussing plan of care. Nabil Reilly MD, PhD Spine Fellowship Trained Neurosurgeon Director, [facility] Orders: Orders XR lumbar spine 4V min Today M43.10 - Spondylolisthesis, site unspecified CT lumbar spine wo IV con Today M43.10 - Spondylolisthesis, site unspecified Coding Level of Care Code Est Pt Level 5 (95583) Diagnoses Spondylolisthesis of lumbosacral region M43.17 Spinal region: lumbosacral
--- OUTSIDE RECORDS SUMMARY | 2024-08-04 11:11 | XMS_ITS | Clinical Summary ---
Author Organization [facility] Address [facility] [place] [address] Care Team Providers Care Batter Mixer Helper Name Role Phone Agnieszka Seymour MD Primary Care Provider [phone] Allergies No known active allergies Medications Medication [...] the recommended settings according to the Medtronic lifeline representatives. We we will allow him to make some changes to the stimulator settings we will start with group A, so that he will have some information when he sees the deep brain stimulator neurologist in [place] in 10 days. GBA associated Parkinson's disease [...] it seems that the middle two peaks distribution district supervisor the most signal. 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 [...] Team Description 07/27/2024 Orders Only Neurology at [address] [address] Fernando Blancas MD Parkinson's disease; Idiopathic Parkinson's disease 07/25/2024 Refill [facility] [place] [address] Benedict Rosado MD 07/21/2024 Telephone [facility]iatry [place] [address] Lelia Sosa 07/21/2024 Notes Only Psychiatry [place] [address] Benedict Rosado MD 07/11/2024 Telephone Neurology at [address] [address] Fernando Blancas MD 07/08/2024 Travel 07/03/2024 Telephone Neurology at [address] [address] Fernando Blancas MD Other (Symptom: freezing a lot, weakness, balance issues, falls /) 06/27/2024 Orders Only Neurology at [address] [address] Fernando Blancas MD Other secondary parkinsonism 06/21/2024 Telephone Neurology at [address] [address] Fernando Blancas MD Other 06/02/2024 8:30 AM EST Office Visit Neurology at [address] [address] Fernando Blancas MD GBA associated Parkinson's disease; Spinal stenosis of lumbar region without neurogenic claudication; Gait difficulty- multifactorial; Idiopathic peripheral neuropathy; S/P deep brain stimulator placement - bilateral GPi - Medtronic Percept 06/02/2024 Travel 05/12/2024 10:00 AM EST TH Visit (TeleHealth) Psychiatry [place] [address] Benedict Rosado MD Parkinson's disease, unspecified whether [...] place to sleep or slept in a longterm (including now)? No 08/03/2022 DH IPV Inpatient [...] 3:00 PM EDT Office Visit Neurology at [address] [address] Fernando Blancas MD [facility] [place] [place] [address] 09/22/2024 10:30 AM EDT TH Visit (TeleHealth) Psychiatry [place] [address] Benedict Rosado MD [facility] [place] [address] Health Maintenance Due Date Last Done Comments Hepatitis C Screening 08/23/1963 Pneumoccocal Vaccine: 50+ (1 of 2 - PCV) 1964 Tetanus/Diphtheria/Pertussis Vaccines (1 - Tdap) 08/22 Zoster vaccine (1 of 2) 08/23/1995 RSV Vaccine (1 - 1-dose 75+ series) 2020 Covid-19 Vaccine (1 - season) 2023 Influenza (Flu) vaccine (1 o f 1 - Influenza standard series) 12/19/2023 Medical Devices Implanted Type Area Vascular Specialists Device Identifier Shelf Expiration Date Model / Serial / Lot Cement,Bne,Cmw 2,Hlf Dose,20gm ([id number]) - [id number] Implanted:Qty: 1 on 10/21/[address] [facility] IMPLANTS DO NOT USE Depuy Mountain Bike Guide - 3527 [id number] / / [id number] Component,Patlr,O vl Std,38mm ([id number]) (Autoreq) - [id number] Implanted:Qty: 1 on 10/21/[address] [facility] IMPLANTS DO NOT USE Depuy Mountain Bike Guide - 3527 07/23/2015 96-0102 / / [id number] Component,Tibl,Pc ot,Keeled,5 (2744932) (Autoreq) - [id number] Implanted:Qty: 1 on 10/21/[address] [facility] IMPLANTS DO NOT USE Depuy Mountain Bike Guide - 3527 06/22/2015 1294-34- 150 / / [id number] Insert,Tibl,Rp,Cr vd,5,10mm (0036808) (Autoreq) - [id number] Implanted:Qty: 1 on 10/21/[address] [facility] IMPLANTS DO NOT USE Depuy Mountain Bike Guide - 3527 05/24/2015 96-2051 / / [id number] Component,Fmrl,Rt ,Cr,5,37u23qc ([id number]) (Autoreq) - [id number] Implanted:Qty: 1 on 10/21/[address] [facility] IMPLANTS DO NOT USE Depuy Mountain Bike Guide - 3527 08/21/2020 94-0025 / / [id number] Cover Tatiana Hole Cranial Low Profile Contoured With Tab ([id number]) - [id number] Implanted:Qty: 2 on 07/08/2020 by Kt Matthews MD at [facility] IMPLANTS Cranial [employer] - MEDTRONIC [id number] / / [id number] A Kit Lead Neurostimulator 0.0jnc34sn Quadripolar Activa Dbs ([id number]) - [id number] Implanted:Qty: 2 on 07/08/2020 by Kt Matthews MD at [facility] IMPLANTS Cranial [employer] - [employer] 05/18/2024 [id number]-40 / / [id number] Battery Generator Neurostimulator Percept Pc ([id number]) (Autoreq) - [id number] Implanted:Qty: 1 on 07/08/2020 by Kt Matthews MD at [facility] IMPLANTS Right: Chest [employer] - [employer] 05/16/2022 [id number] / / [id number] H Kit Extension Neurostimulator 60cm Brain Mri Quadrapolar ([id number]) - [id number] Implanted:Qty: 1 on 07/08/2020 by Kt Matthews MD at [facility] IMPLANTS Left: Cranial [employer] - [employer] 06/12/2023 [id number] / [id number] 0V / Kit Extension Neurostimulator 60cm Brain Mri Quadrapolar ([id number]) - [id number] Implanted:Qty: 1 on 07/08/2020 by Kt Matthews MD at [facility] IMPLANTS Right: Cranial [employer] - [employer] 05/29/2023 [id number] / [id number] / Battery Generator Neurostimulator Percept Pc Brainsense ([id number]) (Autoreq) - [id number] Implanted:Qty: 1 on 08/26/2022 by Nette Ramirez MD at [facility] IMPLANTS Chest Wall [employer] - [employer]IC 01/15/2024 [id number] / [id number] 3H / Percept Rc Implanted:Qty: 1 on 03/29/2024 by Nette Ramirez MD at [facility] Right: Chest [id number] 01/30/2026 [id number] / [id number] 0H / Procedures Procedure Name Priority Date/Time Associated Diagnosis Comments MRI/MRA SCAN 07/24/2024 12:00 AM EDT from Last 3 Months Results * Scan Doc: MRI/MRA (07/24/2024 12:00 AM EDT) Anatomical Region Laterality Modality Other Narrative 07/24/2024 12:00 AM EDT Ordered by an unspecified provider. Scanning Provider MEDIA MGR SCAN EXT O RDR/RSLT from Last 3 Months Advance Directives Documents on File Type Date Recorded Patient Bandmill Operator Expl anation Personal Bandmill Operator 09/24/2022 4:57 PM Anupama Sagor, spouse Advance Directives and Living Will 10/21/2010 [...] is based on Patients wishes. Care Teams Batter Mixer Helper Relationship Specialty Start Date End Date Agnieszka Seymour MD [address] [address] PCP - General Family Medicine 07/01/20
--- OUTSIDE RECORDS SUMMARY | 2024-08-04 11:11 | XMS_ITS | Encounter Summary ---
Author Organization [facility] Address [address] [place] [address] Care Team Providers Care Solution Advisor Name Role Phone Agnieszka Seymour Mt Primary Care Provider [phone] Reason for Visit * Reason Onset Date Comments PAC Tatyana Zimmerman Appt Request - Established 2024 Encounter Details Date Type Department Care Team (Late st Contact Info) Description 07/06/2024 Telephone [facility] Neurology Clinic [address] [place] [address] Telephone Intake, Staff PAC Tatyana Zimmerman Appt [...] Description 10/13/2024 9:00 AM EDT Office Visit [facility] Neurology Clinic [address] [place], [place] [phone] Tatyana Zimmerman, THERMO CEMENTING FOLDER OPERATOR [address] [place] [address] documented as of this encounter Visit Diagnoses Not on filedocumented in this encounter Care Teams Solution Advisor Relationship Specialty Start Date End Date Agnieszka Seymour [address] [place] [phone] PCP - General Family Medicine 03/06/24 documented as of this encounter
--- OUTSIDE RECORDS SUMMARY | 2024-08-04 11:11 | XMS_ITS | Encounter Summary ---
Author Organization [facility] [place] [address] Care Team Providers Care Airframe And Powerplant Mechanic Name Role Phone Agnieszka Seymour MD Primary Care Provider [phone] Reason for Visit * Reason Onset Date Comments Other 07/03/2024 Symptom: freezin g a lot, weakness, balance issues, falls Encounter Details Date Type Department Care Team ([facility] st Contact Info) Description 07/03/2024 Telephone Neurology at [address] [phone] Fernando Blancas MD [facility] [place] [address] Other (Symptom: freezing a lot, weakness, balance [...] place to sleep or slept in a mcc (including now)? No 08/03/2022 IPV Inpatient Questions [...] symptom intensity On request of the administrative call center support representative, I was asked to come speak to the patient who was sitting in front of the exit clerk secretary's desk. Patient was brought into Room 5, so that I could speak with him in private. Patient stated that when they spoke to a energy operations vice president yesterday they were told that they could [...] it is too far to [place] [facility]. Patient and his will be in [place] for the TeleHealth. Parts Room Associate to route note to provider for review [...] medication regiment and can be reached at [phone] to discuss. * Telephone Encounter - Marlin Valencia RN - 07/03/2024 2:05 PM EDT Copied from [facility] #[id number]. Topic: Specialty Dept CRMs - Triage >> [...] 3:00 PM EDT Office Visit Neurology at [address] [address] Fernando Blancas MD [facility] [address] 09/22/2024 10:30 AM EDT TH Visit (TeleHealth) Psychiatry [place] [address] Benedict Rosado MD [facility] [place] [address] documented as of this encounter Visit Diagnoses Not on filedocumented in this encounter Care Teams Airframe And Powerplant Mechanic Relationship Specialty Start Date End Date Agnieszka Seymour MD [address] [address] PCP - General Family Medicine 07/01/20 documented as of this encounter
--- OUTSIDE RECORDS SUMMARY | 2024-08-04 11:11 | XMS_ITS | Referral Summary ---
Author Organization [facility] Address [address] [place] [address] Care Team Providers Care Acid Maker Name Role Phone Dawn Agnieszka Amor Primary Care Provider [phone] Encounters Date Type Department Care Team Description 07/06/2024 Telephone [facility] Neurology Clinic [address] [place] [address] Telephone Intake, Staff PAC Tatyana Zimmerman Appt Request - Established 06/12/2024 9:00 AM EST Office Visit [facility] Neurology Clinic [address] [place] [address] Tatyana Zimmerman NP Parkinson's disease with fluctuating [...] Description 10/13/2024 9:00 AM EDT Office Visit [facility] Neurology Clinic [address] [place] [address] Tatyana Zimmerman NP [address] [place] [address] Insurance BCBS MCR REPLACE PPO Care Teams Acid Maker Relationship Specialty Start Date End Date Agnieszka Seymour [address] [place] [phone] PCP - General Family Medicine 03/06/24
--- OUTSIDE RECORDS SUMMARY | 2024-08-04 11:11 | XMS_ITS | Clinical Summary ---
Author Organization [facility] Address [address] [place] [address] Care Team Providers Care Data Entry Supervisor Name Role Phone Agnieszka Seymour Mt Primary Care Provider [phone] Allergies No known active allergies Medications aspirin [...] Type Department Care Team Description 07/06/2024 Telephone [facility] Neurology Clinic [address] [place] [address] Telephone Intake, Staff PAC Tatyana Zimmerman Appt Request - Established 06/12/2024 9:00 AM EST Office Visit [facility] Neurology Clinic [address] [place] [phone] Erasmo, Tatyana M., GLAZIER STAINED GLASS Parkinson's disease with fluctuating manifestations, unspecified whether [...] Description 10/13/2024 9:00 AM EDT Office Visit [facility] Neurology Clinic [address] [place] [address] Tatyana Zimmerman NP [address] [place] [address] Health Maintenance Due Date Last Done Comments [...] to complete this [place] [id number] BCBS MCR REPLACE PPO Care Teams Data Entry Supervisor Relationship Specialty Start Date End Date Agnieszka Seymour [address] [place] [phone] PCP - General Family Medicine 03/06/24
== END 2024-08-04 11:40 | disposition home or self-care (01) ==
LOC: HO.HNS 10:18
PROVIDERS: PCP Family Medicine; Visit Provider Neurological Surgery
DX: M43.17 Spondylolisthesis, lumbosacral region (principal)
CPT/HCPCS: 99215

== ENCOUNTER 2024-08-04 10:18 | Outpatient (REF) | payer MEDICARE, SELFPAY ==
--- NOTE | ~2024-08-04 | XR_ITS ---
CLINICAL HISTORY: M43.10 - Spondylolisthesis, site unspecified 4 views lumbar spine Comparison: None Findings: Scoliotic curvature. There is anterior displacement of L4 on L5. With neutral position, this is 1.45 cm. With flexion this is 1.29 cm and with a extension 1.0 cm No acute fractures or dislocation. No significant degenerative change. IMPRESSION: No acute findings. This document has been electronically signed by: Darius Carballo MD on 08/05/2024 09:24:55
--- OUTSIDE RECORDS SUMMARY | 2024-08-04 11:42 | XMS_ITS | Clinical Summary ---
Author Organization [facility] Address [address] [place] [address] Care Team Providers Care Cost Coordinator Name Role Phone Agnieszka Seymour Mt Primary Care Provider [phone] Allergies No known active allergies Medications aspirin [...] Type Department Care Team Description 07/06/2024 Telephone [facility] Neurology Clinic [address] [place] [address] Telephone Intake, Staff PAC Tatyana Zimmerman Appt Request - Established 06/12/2024 9:00 AM EST Office Visit [facility] Neurology Clinic [address] [place] [phone] Erasmo, Tatyana M., TELEPHONE INSTRUMENT SUPERVISOR Parkinson's disease with fluctuating manifestations, unspecified whether [...] Description 10/13/2024 9:00 AM EDT Office Visit [facility] Neurology Clinic [address] [place] [address] Tatyana Zimmerman NP [address] [place] [address] Health Maintenance Due Date Last Done Comments [...] to complete this [place] [id number] BCBS MCR REPLACE PPO Care Teams Cost Coordinator Relationship Specialty Start Date End Date Agnieszka Seymour [address] [place] [phone] PCP - General Family Medicine 03/06/24
--- OUTSIDE RECORDS SUMMARY | 2024-08-04 11:42 | XMS_ITS | Encounter Summary ---
Author Organization [facility] [place] [address] Care Team Providers Care Truss Builder Name Role Phone Agnieszka Seymour MD Primary Care Provider [phone] Reason for Visit * Reason Onset Date Comments Other 07/03/2024 Symptom: freezin g a lot, weakness, balance issues, falls Encounter Details Date Type Department Care Team ([facility] st Contact Info) Description 07/03/2024 Telephone Neurology at [address] [phone] Fernando Blancas MD [facility] [place] [address] Other (Symptom: freezing a lot, weakness, balance [...] symptom intensity On request of the administrative student support advisor, I was asked to come speak to the patient who was sitting in front of the exit junior legal secretary's desk. Patient was brought into Room 5, so that I could speak with him in private. Patient stated that when they spoke to a product safety lead yesterday they were told that they could [...] it is too far to drive to [facility]. Patient and his will be in [place] for the TeleHealth. Computer Forensics Analyst to route note to provider for review [...] medication regiment and can be reached at [phone] to discuss. * Telephone Encounter - Marlin Valencia RN - 07/03/2024 2:05 PM EDT Copied from [facility] #[id number]. Topic: Specialty Dept CRMs - Triage >> [...] 3:00 PM EDT Office Visit Neurology at [address] [address] Fernando Blancas MD [facility] [place] [address] 09/22/2024 10:30 AM EDT TH Visit (TeleHealth) Psychiatry [place] [address] Benedict Rosado MD [facility] [place] [address] documented as of this encounter Visit Diagnoses Not on filedocumented in this encounter Care Teams Truss Builder Relationship Specialty Start Date End Date Agnieszka Seymour MD [address] [address] PCP - General Family Medicine 07/01/20 documented as of this encounter
--- OUTSIDE RECORDS SUMMARY | 2024-08-04 11:42 | XMS_ITS | Clinical Summary ---
Author Organization [facility] Address [facility] [place] [address] Care Team Providers Care Hardwood Floor Layer Name Role Phone Agnieszka eSymour MD Primary Care Provider [phone] Allergies No known active allergies Medications Medication [...] the recommended settings according to the Medtronic account representative. We we will allow him to make some changes to the stimulator settings we will start with group A, so that he will have some information when he sees the deep brain stimulator neurologist in [place] in 10 days. GBA associated Parkinson's disease [...] it seems that the middle two peaks sweet pickle maker the most signal. 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 [...] Team Description 07/27/2024 Orders Only Neurology at [address] [address] Fernando Blancas MD Parkinson's disease; Idiopathic Parkinson's disease 07/25/2024 Refill [facility] [place] [address] Benedict Rosado MD 07/21/2024 Telephone [facility] [place] [address] Lelia Sosa 07/21/2024 Notes Only [facility]iatry [place] [address] Benedict Rosado MD 07/11/2024 Telephone Neurology at [address] [address] Fernando Blancas MD 07/08/2024 Travel 07/03/2024 Telephone Neurology at [address] [address] Fernanod Blancas MD Other (Symptom: freezing a lot, weakness, balance issues, falls /) 06/27/2024 Orders Only Neurology at [address] [address] Fernando Blancas MD Other secondary parkinsonism 06/21/2024 Telephone Neurology at [address] [address] Fernando Blancas MD Other 06/02/2024 8:30 AM EST Office Visit Neurology at [address] [address] Fernando Blancas MD GBA associated Parkinson's disease; Spinal stenosis of lumbar region without neurogenic claudication; Gait difficulty- multifactorial; Idiopathic peripheral neuropathy; S/P deep brain stimulator placement - bilateral GPi - Medtronic Percept 06/02/2024 Travel 05/12/2024 10:00 AM EST TH Visit (TeleHealth) Psychiatry [place] [address] Benedict Rosado MD Parkinson's disease, unspecified whether [...] 3:00 PM EDT Office Visit Neurology at [address] [address] Fernando Blancas MD [facility] [place] [address] 09/22/2024 10:30 AM EDT TH Visit (TeleHealth) Psychiatry [place] [address] Benedict Rosado MD [facility] [place] [address] Health Maintenance Due Date Last Done Comments Hepatitis C Screening 08/23/1963 Pneumoccocal Vaccine: 50+ (1 of 2 - PCV) 1964 Tetanus/Diphtheria/Pertussis Vaccines (1 - Tdap) 08/22 Zoster vaccine (1 of 2) 08/23/1995 RSV Vaccine (1 - 1-dose 75+ series) 2020 Covid-19 Vaccine (1 - season) 2023 Influenza (Flu) vaccine (1 o f 1 - Influenza standard series) 12/19/2023 Medical Devices Implanted Type Area Pick Pulling Machine Operator Device Identifier Shelf Expiration Date Model / Serial / Lot Cement,Bne,Cmw 2,Hlf Dose,20gm ([id number]) - [id number] Implanted:Qty: 1 on 10/21/2010 at [facility] IMPLANTS DO NOT USE Depuy [employer] Consultant - 3527 [id number] / / [id number] Component,Patlr,O vl Std,38mm (9697031) (Autoreq) - [id number] Implanted:Qty: 1 on 10/21/2010 at [facility] IMPLANTS DO NOT USE Depuy Healthcare Consultant - 3527 07/23/2015 96-0102 / / [id number] Component,Tibl,Pc ot,Keeled,5 ([id number]) (Autoreq) - [id number] Implanted:Qty: 1 on 10/21/2010 at [facility] IMPLANTS DO NOT USE [employer]uy [employer] Consultant - 3527 06/22/2015 1294-34- 150 / / [id number] Insert,Tibl,Rp,Cr vd,5,10mm (0035289) (Autoreq) - [id number] Implanted:Qty: 1 on 10/21/2010 at [facility] IMPLANTS DO NOT USE Depuy [employer] Consultant - 3527 05/24/2015 96-2051 / / [id number] Component,Fmrl,Rt ,Cr,5,84t19rc (2020241) (Autoreq) - [id number] Implanted:Qty: 1 on 10/21/2010 at [facility] IMPLANTS DO NOT USE Depuy Healthcare Consultant - 3527 08/21/2020 94-0025 / / [id number] Cover Tatiana Hole Cranial Low Profile Contoured With Tab ([id number]) - [id number] Implanted:Qty: 2 on 07/08/2020 by Kt Matthews MD at [facility] IMPLANTS Cranial [employer] - [employer] [id number] / / [id number] A Kit Lead Neurostimulator 0.7vil93xv Quadripolar Activa Dbs ([id number]) - [id number] Implanted:Qty: 2 on 07/08/2020 by Kt Matthews MD at [facility] IMPLANTS Cranial [employer] - [employer] 05/18/2024 3389S-40 / / [id number] Battery Generator Neurostimulator Percept Pc ([id number]) (Autoreq) - [id number] Implanted:Qty: 1 on 07/08/2020 by Kt Matthews MD at [facility] IMPLANTS Right: Chest [employer] - [employer] 05/16/2022 [id number] / / [id number] H Kit Extension Neurostimulator 60cm Brain Mri Quadrapolar (5581614) - [id number] Implanted:Qty: 1 on 07/08/2020 by Kt Matthews MD at [facility] IMPLANTS Left: Cranial [employer] - [employer] 06/12/2023 [id number] / [id number] / Kit Extension Neurostimulator 60cm Brain Mri Quadrapolar ([id number]) - [id number] Implanted:Qty: 1 on 07/08/2020 by Kt Matthews MD at [facility] IMPLANTS Right: Cranial [employer] - [employer] 05/29/2023 [id number] / [id number] 0V / Battery Generator Neurostimulator Percept Pc Brainsense (5865979) (Autoreq) - [id number] Implanted:Qty: 1 on 08/26/2022 by Nette Ramirez MD at [facility] IMPLANTS Chest Wall [employer] - [employer] 01/15/2024 [id number] / [id number] 3H / Percept Rc Implanted:Qty: 1 on 03/29/2024 by Nette Ramirez MD at [facility] Right: Chest [id number] 01/30/2026 [id number] / [id number] 0H / Procedures Procedure Name Priority Date/Time [...] Documents on File Type Date Recorded Patient Bucket Hooker Expl anation Personal Bucket Hooker 09/24/2022 4:57 PM Anupama Sagor, spouse Advance [...] is based on Patients wishes. Care Teams Hardwood Floor Layer Relationship Specialty Start Date End Date Agnieszka Seymour MD [address] [address] PCP - General Family Medicine 07/01/20
--- OUTSIDE RECORDS SUMMARY | 2024-08-04 11:42 | XMS_ITS | Encounter Summary ---
Author Organization [facility] Address [address] [place] [address] Care Team Providers Care Behavioral Health Care Coordinator Name Role Phone Agnieszka Seymour Mt Primary Care Provider [phone] Reason for Visit * Reason Onset Date Comments PAC Tatyana Zimmerman Appt Request - Established 2024 Encounter Details Date Type Department Care Team (Late st Contact Info) Description 07/06/2024 Telephone [facility] Neurology Clinic [address] [place] [address] Telephone Intake, Staff PAC Tatyana Zimmerman Appt [...] Description 10/13/2024 9:00 AM EDT Office Visit [facility] Neurology Clinic [address] [place], [place] [phone] Tatyana Zimmerman, LIME TRIMMER [address] [place] [address] documented as of this encounter Visit Diagnoses Not on filedocumented in this encounter Care Teams Behavioral Health Care Coordinator Relationship Specialty Start Date End Date Agnieszka Seymour [address] [place] [phone] PCP - General Family Medicine 03/06/24 documented as of this encounter
--- OUTSIDE RECORDS SUMMARY | 2024-08-04 11:42 | XMS_ITS | Referral Summary ---
Author Organization [facility] Address [address] [place] [address] Care Team Providers Care Slitter Processed Film Name Role Phone Dawn Agnieszka Amor Primary Care Provider [phone] Encounters Date Type Department Care Team Description 07/06/2024 Telephone [facility] [address] [place] [phone] Telephone Intake, Staff PAC Tatyana Zimmerman Appt Request - Established 06/12/2024 9:00 AM EST Office Visit [facility] [address] [place] [phone] Tatyana Zimmerman NP Parkinson's disease with fluctuating [...] Description 10/13/2024 9:00 AM EDT Office Visit [facility] [address] [place] [address] Tatyana Zimmerman NP [address] [place] [address] Insurance BCBS [employer] REPL[employer] PPO Care Teams Slitter Processed Film Relationship Specialty Start Date End Date Agnieszka Seymour [address] [place] [phone] PCP - General Family Medicine 03/06/24
== END 2024-08-04 10:19 | disposition home or self-care (01) ==
LOC: HO.HOSX 10:18
PROVIDERS: PCP Family Medicine; Visit Provider Neurological Surgery
DX: M43.17 Spondylolisthesis, lumbosacral region (principal)
CPT/HCPCS: 72110; 99212

== ENCOUNTER → 2024-08-04 10:45 | Outpatient (BNV) | payer MEDICARE, SELFPAY | PROVIDERS: PCP Family Medicine; Visit Provider Specialist | DX: M43.10 Spondylolisthesis, site unspecified (principal) | CPT/HCPCS: 72110 ==

== ENCOUNTER 2024-10-18 15:00 | Outpatient (AMB) | payer MEDICARE, SELFPAY ==
--- OUTSIDE RECORDS SUMMARY | 2024-10-18 15:21 | XMS_ITS | Clinical Summary ---
Author Organization [facility] Address [address] [place] [address] Phone Care Team Providers Care Oxygen Therapy Teacher Name Role Phone Agnieszka Seymour MD Primary Care Provider [phone] Social History Tobacco Use Types Packs/Day Years Used Date Smoking Tobacco: Never Assessed Sex and Gender Information Value Date Recorded Sex Assigned at Not on file Legal Sex Male 11:18 AM EDT Gender Identity Not on file Sexual Orientation Not on file Plan of Treatment Upcoming Encounters Date Type Department Care Team ([facility] Contact Info) Description 10/19/2024 8:00 AM EDT Evaluation [facility] [address] [phone] Brittni Ramirez, JUAN Health Maintenance Due Date Last Done Comments DTaP,Tdap,and Td Vaccines (1 - Tdap) 1964 Pneumococcal Vaccine: 50+ Ye ars (1 of 1 - PCV) 08/23/1995 Zoster Vaccines (1 of 2) 08/23/1995 RSV Immunization Adult Patie nts (1 - 1-dose 75+ series) 2020 COVID-19 Vaccine ( - 2023-2 5 season) 2023 Cholesterol Screening (Lipid Panel) 09/27/2024 Depression Screening 09/27/2024 Falls Risk Assessment 09/27/2024 Hepatitis C Screening 09/27/2024 Medicare Annual Wellness Visit 09/27/2024 Social Influencers of Health Screening 09/27/2024 Influenza Vaccine (#1) 2024 HIB Vaccines Aged Out No longer eligi ble based on patient's age to complete this topic HPV Vaccines Aged Out No longer eligi ble based on patient's age to complete this topic Hepatitis A Vaccines Aged Out No long er eligible based on patient's age to complete this topic Hepatitis B Vaccines Aged Out No long er eligible based on patient's age to complete this topic IPV Vaccines Aged Out No longer eligi ble based on patient's age to complete this topic MMR Vaccines Aged Out No longer eligi ble based on patient's age to complete this topic Meningococcal ACWY Vaccine Aged Out N o longer eligible based on patient's age to complete this topic Meningococcal B Vaccine Aged Out No l onger eligible based on patient's age to complete this topic RSV Immunization Patients Un shireen 20 months Aged Out No longer eligible b ased on patient's age to complete this topic Varicella Vaccines Aged Out No longer eligible based on patient's age to complete [place] [id number] [employer] - [place] MEDICARE ADVANTAGE Care Teams Oxygen Therapy Teacher Relationship Specialty Start Date End Date Agnieszka Seymour MD [address] [place] [phone] PCP - General Family Medicine 09/26/24
--- NOTE | 2024-10-18 15:36 | HO.SPINEOV ---
Intake Visit Reasons: CT scan f/up Intake Note: Mr. Baires is here today to F/u after CT scan. Moving Picture Producer Required: No Allergies No Known Allergies Allergy (Verified 08/04/24 10:23) Assessment & Plan Assessment & Plan (1) Spondylolisthesis: Code(s): M43.10 - Spondylolisthesis, site unspecified Category: Medical Qualifiers: Spinal region: lumbosacral Qualified Code(s): M43.17 - Spondylolisthesis, lumbosacral region Plan Dear colleague, on 10/18/2024, I saw for follow-up Garcia Baires to review CT scan of the lumbar spine and to discuss surgical treatments. 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 I ordered a CT scan of the lumbar spine to assess bone quality and to further evaluate his degenerative scoliosis. He has osteopenia. There is a mild degenerative scoliosis with a bone spur formation but no auto fusion of the L2-3 and L3-4 segments. Again seen is the grade 2 L4-5 spondylolisthesis. There is a transitional segment with the vasculature bifurcation present at this level. Therefore, I can not perform an oblique lumbar interbody fusion. In my opinion an anterior lumbar interbody fusion would be the best approach in his patient for the following reasons: 1st a large implant can be inserted with a large amount of allograft. The implant will be sitting on the apophyseal ring which is not affected by the osteopenia and therefore the risk of subsidence is diminished. This also allows for a reduction of the spondylolisthesis and indirect decompression of the nervous structures. The anterior construct would be supported with minimally invasive posterior instrumented fusion L4-5. This approach, in my opinion, has the highest success rate in this patient with Parkinson and diminished quality bone. He was also seen at [facility] where they propose to do a posterior decompression and instrumented fusion. In my opinion, a smaller cage will increase the risk of subsidence and it will be harder to reduce the spondylolisthesis in his patient with osteopenia. Not to mention the distraction of posterior soft tissue, bone and ligaments that is required to perform the decompression and fusion. He wants to think about his options and will get back to my office if he wants to proceed. I spent 35 minutes in his consult to review imaging discussing treatment plan and answering questions. Thank you for allowing me take care of your patient. Nabil Reilly MD, PhD Spine Fellowship Trained Neurosurgeon Director, [facility] Coding Level of Care Code Est Pt Level 4 (17139) Diagnoses Spondylolisthesis of lumbosacral region M43.17 Spinal region: lumbosacral
== END 2024-10-18 16:57 | disposition home or self-care (01) ==
PROVIDERS: PCP Family Medicine; Visit Provider Neurological Surgery
DX: M43.17 Spondylolisthesis, lumbosacral region (principal)
CPT/HCPCS: 99214

== ENCOUNTER → 2024-10-18 15:00 | Outpatient (BNVA) | payer MEDICARE, SELFPAY | PROVIDERS: PCP Family Medicine; Visit Provider Neurological Surgery | DX: Z71.2 Person consulting for explanation of examination or test findings (principal); M43.17 Spondylolisthesis, lumbosacral region | CPT/HCPCS: 99212 ==